=== PATIENT | male | born 1955 | race Caucasian/White ===

== ENCOUNTER 2022-04-25 04:52 | Observation (INO) ==
--- NOTE | 2022-03-21 15:24 | PAT Medication Instructions ---
Medication Instructions Date of Service March 21, 2022 Home Medications fluticasone 100 mcg-salmeterol 50 mcg/dose blistr powdr for inhalation (Advair Diskus) 1 puff INHALATION QAM PRN Take morning of surgery OTHERWISE NOTHING TO EAT OR DRINK AFTER MIDNIGHT: fluticasone 100 mcg-salmeterol 50 mcg/dose blistr powdr for inhalation (Advair Diskus) 1 puff INHALATION QAM PRN (if needed) Other Notes If you have any questions please call us at [phone] or [phone] or [phone] or [phone]
--- NOTE | 2022-03-27 09:23 | Anesthesiology Consultation ---
Date of Service March 27, 2022 Assessment & Plan (1) Encounter for pre-operative examination: Chart Review Chart Review: Acceptable Risk for Surgery (pending preop Covid testing results ) and Patient seen in Pre Admission Testing Pt hesitant re: spinal anesthesia (states he has a friend who states the spinal lasted all day and could not ambulate)- will discuss with anesthesiologist DOS Per PAT appt on 03/27/22, patient denies any recent travel or large group activities. No known Covid positive exposures or Covid related symptoms. No known Covid infection in the past 90 days. Pt is NOT vaccinated for Covid. Preop Covid testing scheduled 04/23/22 = will await results. Educated on importance of self quarantining, social distancing and wearing mask in public for the patient one week prior to surgery and after Covid testing done Teaching & Discussion Pre-Anesthesia Teaching/Discussion Notes: Instructed NPO after midnight before surgery,except medications with 15 cc of water. Medication instructions provided according to the [facility] guidelines. History Surgery Operation Date: 04/25/22 14:20 Proposed Procedures p Bilateral Total Knee Arthroplasty - Ismael Lopez DO Height/Weight Height: 5 ft 11 in Weight: 95.5 kg Allergies Allergy/AdvReac Type Severity Reaction Status Date / Time dust Allergy Mild Sneezing Uncoded 03/21/22 14:20 Medications Home Medications Medication Instructions Recorded Confirmed Last Taken fluticasone 100 mcg-salmeterol 50 1 puff inhalation QAM PRN 09/21/18 03/21/22 09/27/18 06:00 mcg/dose blistr powdr for Shortness Of Breath inhalation (Advair Diskus) Past Medical History Medical History Asthma Allergy induced---inhaler prn Well controlled- no recent issues Hx of retinal detachment Spinal stenosis Exercise / Class Metabolic Activity II 4-5 Yardwork/Stairs/Walk up hill (one flight of stairs - no chest pain or SOB ) Past Surgical History Surgical History History of detached retina repair x2 left History of hand surgery left hand History of lumbar fusion Rods in place History of surgical amputation of finger of right hand tip rt. ring finger History of tooth extraction Past Anesthesia History No Hx of Anesthesia Complications and No Family Hx of Anesthesia Complications (with exception to sons- morphine causes hallunciations (pt denies personal issues with morphine)) History of PONV No Hx of PONV and No Hx of Motion Sickness Social History Smoking Status: Never smoker Do You Dip or Chew Tobacco: No Hx Alcohol Use: No Hx Substance Use: No substance use type: does not use Review of Systems Patient denies chest pain, shortness of breath, dyspnea on exertion, reflux, cough, wheezing, palpitations. No hx of seizures, stroke, AR, apnea/snoring. No hx of blood clots or blood tr ansfusions Physical Exam Vital Signs VITALS BP 160/90 (manually in right arm; patient will recheck at home later today- patient will call PCP if still elevated ) P 67 TEMP 98.0 SP02 98% RESP 16 Constitutional no acute distress ENMT Mouth: no TMJ clicking Thyromental Distance: > or= 3.5 Finger Breadths Mallampati Class: II Top front teeth capped [place] to molar Neck neck extension not limited Respiratory normal respiratory effort; no respiratory distress Auscultation: lungs clear to auscultation bilaterally; no wheezes Cardiovascular Rate/Rhythm: regular rate and regular rhythm Heart Sounds: no murmur Vessels: no carotid bruit Musculoskeletal Spine: + pain with cervical ROM (numbness with extended neck extension ) Extremities: extremities normal to inspection Psychiatric Orientation: alert Lab Results Anesthesia Preop Results Results Anesthesia Widget: WBC 7.58 K/ul (4.8-10.8) 03/27/22 Hgb 15.4 g/dl (14.0-18.0) 03/27/22 Hct 46.7 % (40.1-51.0) 03/27/22 Plt 291 K/uL (130-400) 03/27/22 Na 139 mmol/L (136-145) 03/27/22 K 4.8 mmol/L (3.5-5.1) 03/27/22 Cl 106 mmol/L (98-107) 03/27/22 CO2 28 mmol/L (21-32) 03/27/22 BUN 18 mg/dl (6-23) 03/27/22 Creat 0.87 mg/dl (0.6-1.4) 03/27/22 Glucose Level 101 mg/dl (70-99(Fasting)) H 03/27/22 PT 10.8 Seconds (9.0-12.0) 03/27/22 PTT 26.9 Seconds (21.0-31.0) 03/27/22 INR 1.0 (0.9-1.1) 03/27/22 Blood Type O Positive 03/27/22 Antibody Screen NEGATIVE 03/27/22 Testing Electrocardiogram Date: 03/27/22 Findings: + SB @ (54bpm ) Otherwise normal EKG Chest X-Ray Date: 03/27/22 Findings: + NAD
--- NOTE | 2022-04-24 13:38 | History & Physical Report ---
Date of Service April 24, 2022 Assessment & Plan (1) Osteoarthritis of left knee: We will proceed with a left total knee arthroplasty. Postoperatively he will be started on aspirin for DVT prophylaxis and discharged home in our outpatient joint protocol. [facility]. History of Present Illness Chief Complaint: Osteoarthritis of the left knee. Primary Care Provider: NO PCP Darren is a pleasant 66-year-old male who is been doing chronic increasing left knee pain. X-rays and clinical examination are diagnostic for advanced osteoarthritis of the left knee. After failing conservative treatment, he has elected proceed with a left total knee arthroplasty.. Allergies Allergy/AdvReac Type Severity Reaction Status Date / Time dust Allergy Mild Sneezing Uncoded 03/21/22 14:20 Home Medications Medication Instructions Recorded Confirmed Type fluticasone 100 mcg-salmeterol 50 1 puff inhalation QAM PRN 09/21/18 03/21/22 History mcg/dose blistr powdr for Shortness Of Breath inhalation (Advair Diskus) Past Med/Surg History Medical History Asthma Allergy induced---inhaler prn Well controlled- no recent issues Hx of retinal detachment Spinal stenosis Surgical History History of detached retina repair x2 left History of hand surgery left hand History of lumbar fusion Rods in place History of surgical amputation of finger of right hand tip rt. ring finger History of tooth extraction Social History Smoking Status: Never smoker Second Hand Exposure: No; Hx Alcohol Use: No Hx Substance Use: No Preferred Language: Malay Communication Ability: Effective Research Physician Required: No Beliefs That Will Affect Care: None Current Living Situation: Family Current Living Situation Comment: Handicapped son lives w/him. Feels Safe at Home: Yes Assistive Devices: Glasses Review of Systems All systems reviewed & are unremarkable except as noted in HPI & below. Physical Exam On physical examination of the left knee, he has range of motion of 10 to 110 degrees. He has a severe varus deformity. He has significant tenderness palpation of the distal medial femoral condyle and over the medial joint line.. Constitutional WD/WN, vitals as above Eyes PERRL, conjunctivae normal, anicteric sclerae ENMT external ear and nose normal, oropharynx normal Neck trachea midline, no thyromegaly Respiratory normal respiratory effort, lungs clear to auscultation Cardiovascular RRR, no murmur, no edema Gastrointestinal (Abdomen) normal bowel sounds, soft, nontender, no hepatosplenomegaly Skin no rashes, warm and dry Psychiatric A+Ox3, euthymic affect Results & Data Results & Data Laboratory Results . Diagnostic Findings X-rays of the left knee show advanced osteoarthritis with joint space narrowing, osteophyte formation, and [id number] articulation. PG Care Time/CCT Total # of Minutes Spent Total Time Spent with Patient: Total time spent is greater than 50% in coordination of care (as documented) at patient's floor/unit and/or counseling patient: Coding Level of Care Code None Diagnoses Osteoarthritis of left knee M17.12
[2022-04-25] MEDS ORDERED: ACETAMINOPHEN 500 MG TAB PO SCH (06:00)
[2022-04-25] MEDS ORDERED: FAMOTIDINE 20 MG TAB PO SCH (06:00)
[2022-04-25] MEDS ORDERED: dexAMETHasone 4 MG TAB PO SCH (06:00)
[2022-04-25] MEDS ORDERED: ceFAZolin 2000MG 2,000 MG/15 ML SYR IV SCH (06:00)
[2022-04-25] MEDS ORDERED: Ketorolac (*for OR use only*) 30 MG, dexAMETHasone 4 MG, KETAMINE HCL (**OR use only) 1... INFIL SCH (06:00)
[2022-04-25] MEDS ORDERED: LR 500ML BOLUS, THEN 15ML/HR IV SCH (06:00)
[2022-04-25] MEDS ORDERED: TRANEXAMIC ACID 1,000 MG **IV Pre-op IV SCH (06:00)
[2022-04-25] MEDS ORDERED: LR 60ML/HR IV SCH (06:00)
[2022-04-25] MEDS ORDERED: GABAPENTIN 300 MG CAP PO SCH (06:00)
[2022-04-25] MEDS ORDERED: ROPIVACAINE 0.5% HCL/PF 150 MG, BUPIVACAINE 0.75% MPF 20 ML, EPINEPHrine 30MG/30ML (OR ... INFIL SCH (06:00)
[2022-04-25] MEDS ORDERED: TRANEXAMIC ACID 1,000 MG **IV Intra-op IV SCH (06:00)
[2022-04-25] MEDS ORDERED: BUPIVACAINE 0.25% 30 ML VIAL ONE (06:27)
[2022-04-25] MEDS ORDERED: EPINEPHrine INJ 1 MG/ML AMP ONE (06:27)
[2022-04-25] MEDS ORDERED: MEPIVACAINE HCL 1.5% 30 ML VIAL ONE (06:27)
[2022-04-25] MEDS ORDERED: DEXAMETHASONE SOD INJ 4 MG/ML VIAL ONE ×2 (06:28→07:14)
[2022-04-25] MEDS ORDERED: LIDOCAINE 2% 20 MG/ML 5 ML SYR IV ONE (06:33)
[2022-04-25] MEDS ORDERED: PROPOFOL IV EMULSION 10 MG/ML 20 ML VIAL IV ONE ×3 (06:33→08:10)
[2022-04-25] MEDS ORDERED: fentaNYL citrate 100 MCG/2 ML VIAL ONE (06:34)
[2022-04-25] MEDS ORDERED: MIDAZOLAM HCL 1 MG/ML 2ML VIAL ONE (06:34)
--- NOTE | 2022-04-25 06:47 | History & Physical Bridge Note ---
Date of Service April 25, 2022 History & Physical Bridge Note I have examined the patient, reviewed the History & Physical and in the interval since the performance of the History & Physical I have noted the following changes of clinical significance: no changes noted
[2022-04-25] MEDS ORDERED: ONDANSETRON INJ 2 MG/ML 2 ML VIAL ONE (07:14)
[2022-04-25] MEDS ORDERED: ONDANSETRON INJ 2 MG/ML 2 ML VIAL IV PRN ×2 (07:17→16:33)
[2022-04-25] MEDS ORDERED: fentaNYL citrate 100 MCG/2 ML VIAL IV PRN (07:17)
[2022-04-25] MEDS ORDERED: ePHEDrine sulfate 50 MG/ML AMP IV PRN (07:17)
[2022-04-25] MEDS ORDERED: PROMETHAZINE HCL 6.25 MG in SODIUM CHLORIDE 0.9% 50 ML IV PRN (07:17)
[2022-04-25] MEDS ORDERED: ATROPINE SULFATE 0.1 MG/ML 10ML SYR IV PRN (07:17)
[2022-04-25] MEDS ORDERED: oxyCODONE/ACETAMINOPHEN 5mg/325mg TAB PO PRN (08:11)
--- NOTE | 2022-04-25 08:11 | Operative Report ---
PG Post Operative Report Pre & Post Diagnosis Operation Date: 04/25/22 07:00 Pre-Op Diagnosis: Degenerative Joint Disease left knee Post-Op Diagnosis: Degenerative Joint Disease left knee I identified the patient and participated in the time-out.: Yes Procedure Operation Date: 04/25/22 07:00 Actual Procedures p Left Total Knee Arthroplasty(Left) - Ismael Lopez DO Surgeon Ismael Lopez DO Plastic Installer Ismael Saravia PA-C Estimated Blood Loss 10 Findings Consistent with Post-Op Diagnosis Specimens Left femoral and tibial bone Description of Procedure Implants used: I used a Tila Persona total knee arthroplasty system with a size 10 PS femur, G tibia with a 10 mm stem extension, 34 oval patella, and a size 10 CPS polyethylene bearing. All components were cemented in place with Biomet cement. Darren arrived [facility] for the above procedure. He was seen in the preoperative holding area and the operative extremity was identified and signed. He was given a preoperative antibiotic, TXA, a spinal anesthetic and an adductor nerve block. He was taken back to the operating room and laid on the table in supine position. He was given basic sedation. The operative knee was then prepped and draped in sterile fashion. A timeout was done, and the patient and the operative extremity was properly identified. A midline incision was made directly over the patella. Dissection was taken down to the extensor mechanism. A subvastus arthrotomy was used. The medial retinaculum was released and the fat pad was mostly excised. The knee was flexed and the ACL, PCL, and meniscus were removed. A drill was sent down the center of the femoral canal followed by an intramedullary esther. Off that esther a distal femoral cutting block was placed. 9 mm was resected off the distal femur at 5 of valgus. A posterior referencing AP sizing guide was then placed on the distal femur. The femur measured to be a size 10. 2 drill holes were placed in 3 of external rotation. A 4-in-1 cutting block was then impacted into place. Anterior, posterior, and chamfer cuts were then made. The proximal tibia was then exposed. An external tibial alignment guide was placed. A tibial cut guide was then anchored in place and the proximal tibia was then resected. The posterior aspect of the knee was then opened up and any additional meniscus fragments and osteophytes were removed. The tibia measured to be a size G. The tibial plate was then placed in the appropriate rotation and the tibia was drilled and punched. Trial components were then placed. I used a size 10 CPS polyethylene insert. The knee was brought through a full range of motion and felt to be stable. The peg holes for the femoral component were then drilled. The patella was then everted and 9 mm was resected off the posterior aspect of the patella. The patella measured to be a size 34 oval. 3 peg holes were then drilled. A trial patella was placed. The knee was once again brought through a full range of motion and felt to be stable. Trial components were then removed. The surrounding soft tissues were injected with 100 cc of an orthopedic pain control cocktail. All components were then cemented into place with Biomet cement. The final polyethylene insert was then snapped into place. Once cement was dry the tourniquet was deflated. Hemostasis was obtained. A dilute betadyne lavage was then done for 3 minutes. The joint was then irrigated with normal saline solution. The subvastus arthrotomy was then closed with #1 Vicryl suture. The skin was closed with 2-0 Vicryl, 3-0V lock suture, and liana. A soft compressive dressing was placed. He was then transferred to a hospital bed and taken to the postanesthesia care unit in stable condition. He tolerated the procedure well. Ismael Saravia PA-C, was present for the entire procedure. He was critical for patient positioning, prepping, draping, retraction exposure, wound closure and application of sterile dressing. I attest to the content of the Intraoperative Record and any orders documented therein. Any exceptions are noted below.
--- NOTE | 2022-04-25 09:01 | XRay Report ---
XR knee LT 1 or 2V routine CLINICAL HISTORY: Postoperative evaluation. COMPARISON: Knee radiographs October 11, 2021. FINDINGS: Alignment of the total left knee arthroplasty is anatomic. There is no periprosthetic frac ture or unexpected radiopaque foreign body. There are skin liana. IMPRESSION: Expected findings following total left knee arthroplasty. ACT 112: Negative or not required by law. Electronically signed by: Ulisses Ga M.D. 04/25/2022 9:00 AM
--- NOTE | 2022-04-25 09:39 | Anesthesiology Progress Note ---
Date of Service April 25, 2022 Anesthesia Post Procedure Vital Signs Vital Signs: Temp Pulse Pulse Resp BP Pulse Ox O2 Del Method 04/25/22 09:20 36.2 C L 64 14 113/72 98 Room Air 04/25/22 09:10 73 18 122/70 97 Room Air 04/25/22 08:50 67 19 125/82 97 Oxymask 04/25/22 08:40 72 20 126/67 97 Oxymask 04/25/22 09:30 67 14 112/80 98 Room Air 04/25/22 09:00 64 14 116/73 98 Oxymask 04/25/22 08:32 36 C L 58 L 19 98/61 L 97 Oxymask 04/25/22 05:51 157/94 H 04/25/22 05:23 36.5 C 69 20 145/102 H 95 Room Air O2 Flow Rate 04/25/22 09:20 04/25/22 09:10 04/25/22 08:50 4 04/25/22 08:40 4 04/25/22 09:30 04/25/22 09:00 2 04/25/22 08:32 6 04/25/22 05:51 04/25/22 05:23 Transfer of Care Handoff Completed per policy Notes Mental Status: alert / awake / arousable Patient Amnestic to Procedure: Yes Nausea / Vomiting: adequately controlled Pain: adequately controlled Airway Patency, RR, SpO2: stable & adequate BP & HR: stable & adequate Hydration State: stable & adequate Neuraxial Anesthesia: was administered and sensory block is resolving Anesthetic Complications: no major complications apparent and Pt Satisfied with anesthetic care
[2022-04-25] MEDS ORDERED: SODIUM CHLORIDE 0.9% 1000ML 1,000 ML IV SCH (16:33)
[2022-04-25] MEDS ORDERED: HYDROmorphone INJ 0.5 MG/0.5 ML SYR IV PRN (16:33)
[2022-04-25] MEDS ORDERED: oxyCODONE HCL IR 5 MG TAB (IMMEDIATE RELEASE) PO PRN (16:33)
[2022-04-25] MEDS ORDERED: METOCLOPRAMIDE HCL INJ 5 MG/ML 2 ML VIAL IV PRN (16:33)
[2022-04-25] MEDS ORDERED: NALOXONE HCL 0.4 MG/1 ML VIAL/CARP IV PRN (16:33)
[2022-04-25] MEDS ORDERED: bisacodyL 10 MG SUPP PR PRN (16:33)
[2022-04-25] MEDS ORDERED: MAGNESIUM HYDROXIDE SUSP 30 ML UDC PO PRN (16:33)
[2022-04-25] MEDS ORDERED: FLUTICASONE/VILANTEROL 100/25MCG 14 PUFFS/INHALER INH PRN (17:01)
[2022-04-25] MEDS: KETOROLAC TROMETHAMINE 15 MG/ML VIAL IV SCH ×2 (17:02→22:01)
[2022-04-25] MEDS ORDERED: SENNA 8.6 MG TAB PO SCH (21:00)
[2022-04-25] MEDS: ceFAZolin 2000MG 2,000 MG/15 ML SYR IV SCH (21:50)
[2022-04-25] MEDS: DOCUSATE SODIUM 100 MG CAP PO SCH (21:51)
[2022-04-25] MEDS: ASPIRIN 81 MG ECTAB PO SCH (21:51)
[2022-04-25] MEDS: ACETAMINOPHEN 500 MG TAB PO SCH (21:52)
[2022-04-26] MEDS: ceFAZolin 2000MG 2,000 MG/15 ML SYR IV SCH (05:16)
[2022-04-26] MEDS: ACETAMINOPHEN 500 MG TAB PO SCH (05:16)
[2022-04-26] MEDS: KETOROLAC TROMETHAMINE 15 MG/ML VIAL IV SCH ×2 (05:16→10:49)
[2022-04-26] MEDS ORDERED: dexAMETHasone 4 MG TAB PO SCH (08:00)
[2022-04-26] MEDS: DOCUSATE SODIUM 100 MG CAP PO SCH (08:35)
[2022-04-26] MEDS: ASPIRIN 81 MG ECTAB PO SCH (08:35)
[2022-04-26] MEDS ORDERED: MULTIVITAMIN TAB PO SCH (09:00)
--- NOTE | 2022-04-26 09:13 | Orthopedic Progress Note ---
Date of Service April 26, 2022 Assessment & Plan (1) Status post left knee replacement: Overall he is doing very well. Is not having much pain in the left knee. He will be seen by physical therapy today for ambulation and range of motion exercises. He is on aspirin for DVT prophylaxis. He can be discharged home later today. He will follow-up with orthopedics in 2 weeks. [place] was seen and examined at bedside this morning. Overall is doing very well. Is not having much pain in the left knee. He has been up and walking to the bathroom. The block is worn off and his quad strength has returned. He has no complaints.. Review of Systems All systems reviewed & are unremarkable except as noted in HPI & below. Physical Exam On physical examination of the left knee, the dressing is clean and dry. He can do a straight leg raise. He can flex about 90 degrees. He is neurovascular intact.. Results & Data Results & Data Laboratory Results . Diagnostic Findings Postoperative x-rays of the left knee show the prosthesis to be in anatomic alignment without any evidence of fracture, desiccation, or loosening. PG Care Time/CCT Total # of Minutes Spent Total Time Spent with Patient: Total time spent is greater than 50% in coordination of care (as documented) at patient's floor/unit and/or counseling patient: Coding Level of Care Code 61810 Post Operative Follow-Up Diagnoses Status post left knee replacement Z96.652
--- NOTE | 2022-04-26 09:15 | Discharge Summary ---
Date of Service April 26, 2022 Admission HPI (Per Admitting) Darren is a pleasant 66-year-old male who is been doing chronic increasing left knee pain. X-rays and clinical examination are diagnostic for advanced osteoarthritis of the left knee. After failing conservative treatment, he has elected proceed with a left total knee arthroplasty.. Admission Exam (Per Admitting) On physical examination of the left knee, he has range of motion of 10 to 110 degrees. He has a severe varus deformity. He has significant tenderness palpation of the distal medial femoral condyle and over the medial joint line.. Principal Diagnosis Same as "Discharge Diagnosis" noted below under Discharge Instructions. Discharge Exam On physical examination of the left knee, the dressing is clean and dry. He can do a straight leg raise. He can flex about 90 degrees. He is neurovascular intact.. Discharge Data Procedures Performed Operation Date: 04/25/22 07:00 Actual Procedures p Left Total Knee Arthroplasty(Left) - Ismael Lopez DO Ordered Studies 04/25/22 05:00 US - OR guided needle placemen Routine Hospital Course (1) Status post left knee replacement: On April 25, 2022 Darren arrived at [facility] and underwent a left knee replaced without complication. He had a spinal anesthetic. He had a left adductor nerve block. Postoperatively he was part of her outpatient joint protocol. He was feeling well postoperatively and had no pain in his knee. Unfortunately the adductor canal block was still working and he did not have any control of his quad. He was unable to ambulate without falling and the decision was made to keep him overnight. On postop day #1, his vital signs were stable and his pain was well controlled. He was able to participate well with physical therapy doing ambulation and range of motion exercises. He was then discharged home. He will follow-up with orthopedics in 2 weeks. PG Care Time/CCT Total # of Minutes Spent Total Time Spent with Patient: Total time spent is greater than 50% in coordination of care (as documented) at patient's floor/unit and/or counseling patient: Discharge Plan Discharge Items Patient Disposition: Home - Home Health Services Reason For Visit: Degenerative Joint Disease Bilateral Knees Discharge Diagnosis: Left knee replacement Activity: Per Instructions section Non-emergency contact: Surgeon Call non-emergency contact if: your wound has increased redness and your wound has increased drainage Follow-up/Referrals: [facility] [Outside] (as per surgeon's office ) Ismael Lopez, [Physician] - PCP,NO [Primary Care Provider] - Diet: Regular Addtl Attending Provider Instructions: Activity and Therapy Recommendations: * If you are using [facility] then therapy will be provided at your home until they feel you have accomplished all of your goals. * If you are using [facility] then Physical Therapy will be provided until they feel you are ready to start Outpatient Physical Therapy. * If you are not using home therapy then Outpatient Physical Therapy should start about 3-5 days from your day of surgery. Therapy will last about 6-10 weeks * It is important not to put a pillow under your knee when you are relaxing or sleeping. It is just as important to make sure you are getting your knee perfectly straight as it is to regain your knee bend. * You were shown a series of exercises in the hospital. Do these exercises three times each day including the exercises you were shown in physical therapy. * Get up and walk several times each day. For the first four weeks, try not to stand or walk for more than one hour at a time. If you do stand or walk for more than one hour, you will not hurt anything, but your leg will likely swell. * As you feel comfortable, you may change from the walker or crutches to a cane and then to independent walking. Medications: * Narcotic You will likely be sent home from the hospital with a prescription for the narcotic pain medication that worked best throughout your stay. * Aspirin Most patients will be required to take Aspirin 81mg twice a day for 6 weeks after surgery. This is obtained [id number] and a prescription is not necessary. * Other medications may be prescribed for specific circumstances. If you have any questions, please call the office at . * Resume previous home medications unless otherwise instructed TEDs/Elastic Stockings: The white elastic stockings help limit swelling and prevent blood clots from forming in your legs.~ The more you wear them, the more they work. Wear them for six weeks. Dressing Care: The dressing can be changed after physical therapy on postop day #1. Daily dry dressing changes for a few days, especially if the incision is still draining some. If the incision is not draining then you may leave the liana open to air. If there is a little bit of drainage or if the liana are getting stuck on your clothing then cover the incision with a dry dressing. The liana will be removed at your 2 week follow-up appointment. Showering: You may shower 5 days from the day of surgery as long as the incision is no longer draining. You may shower with the liana exposed. Let soapy water run over the liana and pat them dry. Do not scrub or soak the incision. Things To Watch For: * Drainage from the incision site that occurs more than one week after your surgery. * Increased redness at the incision site. * Fever above 102 degrees Fahrenheit. * Unusual chest pain or shortness of breath. * Call [facility] at with any of the above problems Follow-Up Visit: Follow-up with Dr. Lopez's PA (Ismael Saravia) 2-3 weeks after your day of surgery. He will remove your liana and answer any questions. If you have any additional questions or concerns, Dr Lopez is usually in the office at the same time and will be available An appointment was probably scheduled when you signed-up for surgery in the office. If you have any questions call Office Instructions: More detailed instructions as well as Frequently Asked Questions were provided in a folder by our office when you signed-up for surgery. Please review these instructions when you get home. If you have any further questions or concerns, please feel free to call the office at [phone] Pending Studies at Discharge: No Stand-Alone Forms: Anesthesia/Sedation, Adult, My [facility] Medications and DC Order Prescriptions: New oxycodone-acetaminophen 5-325 mg tablet 1 tab PO Q6H PRN (Reason: pain) Qty: 30 0RF aspirin [Adult Aspirin Regimen] 81 mg tablet,delayed release (DR/EC) 81 mg PO BID Qty: 84 0RF celecoxib [Celebrex] 200 mg capsule 200 mg PO Q12H Qty: 28 0RF Rx Instructions: Take twice a day for 2 weeks after surgery Continued fluticasone propion-salmeterol [Advair Diskus] 100-50 mcg/dose Blister With Device 1 puff INHALATION QAM PRN (Reason: Shortness Of Breath) Discharge Orders: Discharge Order (Routine); Ordered 04/26/22 Ordered By: Ismael Leon/Other Patient Handouts: DVT Post Op Prevention Admission Data Admit Date/Time: 04/25/22 14:53 Attending Provider: Ismael Lopez Admit Provider: Ismael Lopez Primary Care Provider: PCP,NO Other Interventions: Discharge Summary Assessment (RN) Last Done: 04/25/22 15:00
== END 2022-04-26 11:40 | disposition home health service (06) ==
LOC: 3W 04:52 → ASU 04:52
DX: Z79.82 Long term (current) use of aspirin; M17.12 Unilateral primary osteoarthritis, left knee; Z79.899 Other long term (current) drug therapy